=== PATIENT | male | born 1985 | race Two or more races ===

== ENCOUNTER 2025-05-03 12:20 | Emergency (ER) | payer OTHER ==
[~2025-05-03] VITALS: Ht 165.1 cm; Wt 72.6 kg
[~2025-05-03 12:20] MED LIST: TUSNEL LIQUID178 ML PO; ZITHROMAX500 MG PO; ZYRTEC10 MG PO
[2025-05-03] MEDS ORDERED: KETOROLAC TROMETHAMINE 60 MG VIAL IM ONE (13:00)
[2025-05-03 13:17] LABS: BASO % 0.2 % (0.1-1.2); EOS # 0.43 (0.04-0.54); EOS % 3.3 % (0.7-7.0); LYMPH # 3.56 (1.18-3.74); LYMPH % 27.6 % (19.3-53.1); MEAN PLATELET VOLUME 9.20 fl (9.4-12.4); MONO # 0.95 (0.24-0.82); MONO % 7.4 % (4.7-12.5); NEUT # 7.86 (1.56-6.13); NEUT % 60.8 % (34.0-71.1); RED CELL DISTRIBUTION WIDTH 12.7 % (11.6-14.4)
[2025-05-03 13:44] LABS: ALT/SGPT 23.0 U/L (12-78); AST/SGOT 8.0 U/L (15-37); BILIRUBIN TOTAL 0.53 mg/dL (0.3-1.2); BUN CREA RATIO 13.0 (7.0-25.0); CREATININE SERUM 1.0 mg/dL (0.70-1.30); GFR 82.76; GLOBULINA 3.5 G/DL (2.4-3.5); GLUCOSE FASTING 96.0 mg/dL (65-100); OSMOLALITY SERUM 281.0 MOSM/KG (275-295)
[2025-05-03] MEDS ORDERED: NORFLEX100MG PO (14:48)
== END 2025-05-03 15:11 | disposition home or self-care (01) ==
LOC: ER 12:20
PROVIDERS: General Practice
DX: M79.662 Pain in left lower leg (principal); E11.9 Type 2 diabetes mellitus without complications